=== PATIENT | female | born 1975 | race Two or more races ===

== ENCOUNTER 2017-03-02 08:07 | Emergency (ER) | payer BC ==
[~2017-03-02] VITALS: Ht 147.3 cm; Wt 68.0 kg
[2017-03-02 08:42] LABS: Basophils # (auto) 0.1 uL; DEFINITIVE VIEW TRANSMISSION; Eosinophils # (auto) 0.2 uL; Eosinophils % (auto) 1.4 % (0.0-7.0); Monocytes # (auto) 0.7 uL
[2017-03-02] MEDS ORDERED: LISI10TA6 PO (08:51)
[2017-03-02] MEDS ORDERED: TOPI50TA53 PO (08:51)
[2017-03-02] MEDS ORDERED: SUMA50TA16 PO (08:51)
[2017-03-02 08:54] LABS: Basophils % (auto) 0.7 % (0.0-2.0); Hematocrit 41.7 % (36.0-46.0); Hemoglobin 14.1 g/dL (12.2-16.2); Lymphocytes % (auto) 31.7 % (10.0-50.0); Mean Corpuscular Hemoglobin 25.9 pg (28.0-32.0); Mean Corpuscular Hgb Conc. 33.8 g/dL (32.0-36.0); Mean Corpuscular Volume 76.7 fL (80.0-100.0); Mean Platelet Volume 8.6 fL (7.4-10.4); Monocytes % (auto) 5.5 % (0.0-12.0); Neutrophils # (auto) 7.7 uL; Neutrophils % (auto) 60.7 % (37.0-80.0); Platelet Count (auto) 470 10^3/uL (140-450); Red Cell Distribution Width 14.6 % (11.6-16.0); White Blood Cell 12.7 10^3/uL (4.4-10.8)
[2017-03-02] MEDS ORDERED: LORazepam 0.5 MG TAB PO ONE (09:00)
[2017-03-02 10:25] LABS: Albumin 3.5 g/dL (3.4-5.0); Anion Gap 10 (5-15); Aspartate Aminotransferase 29 U/L (15-37); BUN/Creatinine Ratio 21.6; Blood Urea Nitrogen 19 mg/dL (7-18); Calcium 8.8 mg/dL (8.5-10.1); Carbon Dioxide 26 mmol/L (21-32); Chloride 105 mmol/L (98-107); GFR African American 91 mL/min; GFR Non-African American 75 mL/min; Glucose 126 mg/dL (74-106); HEMOLYSIS - HIL 1; ICTERIA - HIL 1; LIPEMIA - HIL 1; Magnesium 2.2 mg/dL (1.6-2.6); Potassium 3.9 mmol/L (3.5-5.1); Sodium 141 mmol/L (136-145)
[2017-03-02 10:30] LABS: Alkaline Phosphatase 87 U/L (45-117); Bilirubin, Total 0.6 mg/dL (0.2-1.0); Total Protein 8.2 g/dL (6.4-8.2)
[2017-03-02 10:36] LABS: Urine Bilirubin Negative (Negative); Urine Blood Negative /uL (Negative); Urine Color Yellow (Yellow); Urine Glucose Normal (Normal); Urine Ketone Negative (Negative); Urine Mucus FEW (None Seen); Urine Nitrite Negative (Negative); Urine RBC 2 /hpf (0 - 4); Urine Squamous Epithelial Cell MANY /hpf (<5); Urine Urobilinogen Normal (Negative); Urine pH 5.5 (5.0-8.0)
[2017-03-02] MEDS ORDERED: NITROFURANTOIN (MONO) 100 mg CAP PO ONE (11:15)
[2017-03-02 11:16] VITALS: BP 121/84
== END 2017-03-02 11:22 | disposition home or self-care (01) ==
LOC: ER 08:16
DX: N39.0 Urinary tract infection, site not specified (principal); I10 Essential (primary) hypertension; R07.89 Other chest pain
CPT/HCPCS: 36415; 71010; 80053; 81001; 83735; 84484; 85025; 93005

== ENCOUNTER 2018-08-01 04:18 | Emergency (ER) | payer BC ==
[~2018-08-01] VITALS: Ht 149.9 cm; Wt 81.6 kg
[~2018-08-01 04:18] MED LIST: LISI10TA6 PO; SUMA50TA16 PO; TOPI50TA53 PO
[2018-08-01 06:07] LABS: Urine Bacteria FEW /hpf (None Seen); Urine Blood 2+ /uL (Negative); Urine Mucus FEW (None Seen); Urine Specific Gravity 1.019 (1.001-1.035); Urine WBC 10 /hpf (0 - 5)
[2018-08-01 06:27] LABS: Basophils # (auto) 0.1 uL; Monocytes # (auto) 0.6 uL; Monocytes % (auto) 4.9 % (0.0-12.0)
[2018-08-01 06:29] LABS: Basophils % (auto) 0.9 % (0.0-2.0); Eosinophils # (auto) 0.2 uL; Eosinophils % (auto) 1.2 % (0.0-7.0); Hematocrit 38.8 % (36.0-46.0); Hemoglobin 12.8 g/dL (12.2-16.2); Lymphocytes # (auto) 3.2 uL; Lymphocytes % (auto) 26.1 % (10.0-50.0); Mean Corpuscular Hemoglobin 25.5 pg (28.0-32.0); Mean Corpuscular Hgb Conc. 33.1 g/dL (32.0-36.0); Mean Corpuscular Volume 77.2 fL (80.0-100.0); Neutrophils # (auto) 8.3 uL; Neutrophils % (auto) 66.9 % (37.0-80.0); Platelet Count (auto) 452 10^3/uL (140-450); Red Blood Cells 5.03 10^6/uL (4.0-5.20); Red Cell Distribution Width 14.7 % (11.8-14.3); White Blood Cell 12.4 10^3/uL (4.4-10.8)
[2018-08-01 06:37] LABS: Albumin 3.5 g/dL (3.4-5.0); Calcium 8.6 mg/dL (8.5-10.1)
[2018-08-01 06:40] LABS: Bilirubin, Total 0.4 mg/dL (0.2-1.0); Total Protein 7.9 g/dL (6.4-8.2)
[2018-08-01] MEDS ORDERED: SODIUM CHLORIDE 0.9% 500 ML IVB ONE (09:18)
[2018-08-01] MEDS ORDERED: SODIUM CHLORIDE 0.9% 1,000 ML IV ONE (09:18)
[2018-08-01] MEDS ORDERED: cefTRIAXone 1GM/50ML D5W 50 ML IV ONE (09:30)
[2018-08-01 11:27] VITALS: BP 124/79
== END 2018-08-01 11:30 | disposition home or self-care (01) ==
LOC: ER 04:18 → EDBD 04:18 → ER 11:30
DX: N39.0 Urinary tract infection, site not specified (principal); I10 Essential (primary) hypertension; E78.5 Hyperlipidemia, unspecified
CPT/HCPCS: 36415; 80053; 81001; 81025; 82150; 83690; 85025; 96365; 99284; J0696